=== PATIENT | male | born 1955 | race Caucasian/White ===

== ENCOUNTER 2016-04-08 17:33 | Inpatient (IN) | payer MEDICARE, OTHER ==
[~2016-04-08] VITALS: Ht 182.9 cm; Wt 163.2 kg
[2016-04-08] VITALS (10 sets, daily range): BP systolic 80–99; RESP 9–22; TEMP 97.7; BMI 45.7
[2016-04-08] MEDS ORDERED: SODIUM CHLORIDE 0.9% 1,000 ML ONE ×2 (17:51→19:49)
[2016-04-08] MEDS ORDERED: ASPIRIN 81 MG CHEW TAB ONE (18:02)
[2016-04-08] MEDS ORDERED: SODIUM CHLORIDE 0.9% 500 ML IV ONE (19:28)
[2016-04-08] MEDS ORDERED: ED DOPamine PREMIX 250 ML IV ONE (19:49)
[2016-04-08] MEDS ORDERED: ONDANSETRON 4 MG VIAL ONE (20:07)
[2016-04-08] MEDS ORDERED: LORAZEPAM 0.5 MG TAB PO PRN (20:30)
[2016-04-08] MEDS ORDERED: TEMAZEPAM 15 MG CAP PO PRN (20:30)
[2016-04-08] MEDS ORDERED: SOD CHLOR 0.9% 1000 ML IV SCH (20:30)
[2016-04-08] MEDS ORDERED: NITROGLYCERIN SL 0.4 MG TAB SL PRN (20:30)
[2016-04-08] MEDS ORDERED: TRAMADOL 50 MG TAB PO PRN (20:30)
[2016-04-08] MEDS ORDERED: DOCUSATE SOD 100 MG CAP PO PRN (20:30)
[2016-04-08] MEDS ORDERED: ASPIRIN 81 MG CHEW TAB PO ONE (20:30)
[2016-04-08] MEDS ORDERED: SALINE FLUSH 10 ML FLUSH PRN (20:30)
[2016-04-08] MEDS ORDERED: SODIUM CHLORIDE 0.9% FLUSH BAG 500 ML IV PRN (20:30)
[2016-04-08] MEDS ORDERED: NITROGLYCERIN 50 MG/250 ML IV PRN (20:30)
[2016-04-08] MEDS ORDERED: DOPamine 400 MG/D5W 250 ML IV SCH (21:45)
[2016-04-08] MEDS ORDERED: DEXTROSE 50% SYRINGE 50 ML IV PRN (23:55)
[2016-04-08] MEDS ORDERED: GLUCAGON 1 MG VIAL IM PRN (23:55)
[2016-04-09] VITALS (68 sets, daily range): BP systolic 72–138; RESP 14–25; TEMP 97.4–97.9
[2016-04-09] MEDS: SALINE FLUSH 10 ML FLUSH SCH ×2 (07:43→20:45)
[2016-04-09] MEDS ORDERED: ASPIRIN EC 81 MG TAB PO SCH (08:00)
[2016-04-09] MEDS: MORPHINE 2 MG/ML SYR IV PRN (09:20)
[2016-04-09] MEDS: ASPIRIN EC 81 MG TAB PO SCH (11:50)
[2016-04-09] MEDS ORDERED: NITROGLYCERIN SL 0.4 MG TAB SL SCH (11:50)
[2016-04-09] MEDS ORDERED: [UNRECOGNIZED DRUG - REMARK] XX SCH (12:23)
[2016-04-09] MEDS: CITALOPRAM 20 MG TAB PO SCH (12:47)
[2016-04-09] MEDS: LEVOTHYROXINE 0.125 MG TAB PO SCH (15:53)
[2016-04-09] MEDS: ACETAMINOPHEN 325 MG TAB PO PRN ×2 (16:44→20:43)
[2016-04-09] MEDS ORDERED: TRAMADOL 50 MG TAB PO PRN ×2 (16:55)
[2016-04-09] MEDS: FAMOTIDINE 40 MG TAB PO SCH (20:42)
[2016-04-09] MEDS: RANOLAZINE ER 500 MG TAB PO SCH (20:42)
[2016-04-10] VITALS (21 sets, daily range): BP systolic 67–153; RESP 14–24; TEMP 97.5–98.4; Ht 182.9 cm; Wt 163.2 kg
[2016-04-10] MEDS: LEVOTHYROXINE 0.125 MG TAB PO SCH (06:14)
[2016-04-10] MEDS ORDERED: LEVOTHYROXINE 0.025 MG TAB PO SCH (07:00)
[2016-04-10] MEDS: AMIODARONE 200 MG TAB PO SCH (08:08)
[2016-04-10] MEDS: ASPIRIN EC 81 MG TAB PO SCH (08:08)
[2016-04-10] MEDS: FAMOTIDINE 40 MG TAB PO SCH ×2 (08:08→20:38)
[2016-04-10] MEDS: RANOLAZINE ER 500 MG TAB PO SCH ×2 (08:08→20:38)
[2016-04-10] MEDS: SALINE FLUSH 10 ML FLUSH SCH ×2 (08:08→20:38)
[2016-04-10] MEDS: CITALOPRAM 20 MG TAB PO SCH (08:09)
[2016-04-10] MEDS ORDERED: KAYEXOLATE 15 GM/60 ML BTL PO ONE (09:50)
[2016-04-10] MEDS ORDERED: CALCIUM GLUCONATE 1,000 MG in SODIUM CHLORIDE 0.9% 100 ML IV ONE (09:50)
[2016-04-10] MEDS: MORPHINE 2 MG/ML SYR IV PRN (12:06)
[2016-04-10] MEDS: ONDANSETRON 4 MG VIAL IV PRN (12:44)
[2016-04-10] MEDS ORDERED: MISSING DOSE XX ONE (18:35)
[2016-04-10] MEDS ORDERED: DOCUSATE SOD 100 MG CAP PO PRN (18:40)
[2016-04-10] MEDS ORDERED: METOPROLOL XL 25 MG TAB PO SCH (21:00)
[2016-04-11 03:04] VITALS: BP_SYST 104; RESP 18; TEMP 98.3
[2016-04-11 03:05] VITALS: BP_SYST 104; RESP 18; TEMP 98.3
[2016-04-11] MEDS: ONDANSETRON 4 MG VIAL IV PRN (04:44)
[2016-04-11] MEDS: LEVOTHYROXINE 0.125 MG TAB PO SCH (05:25)
[2016-04-11 08:09] VITALS: BP_SYST 144; RESP 20; TEMP 97.8
[2016-04-11] MEDS: SALINE FLUSH 10 ML FLUSH SCH (08:33)
[2016-04-11] MEDS: ASPIRIN EC 81 MG TAB PO SCH (08:34)
[2016-04-11] MEDS: RANOLAZINE ER 500 MG TAB PO SCH (08:34)
[2016-04-11] MEDS: FAMOTIDINE 40 MG TAB PO SCH (08:34)
[2016-04-11] MEDS: AMIODARONE 200 MG TAB PO SCH (08:34)
[2016-04-11] MEDS: CITALOPRAM 20 MG TAB PO SCH (08:34)
[2016-04-11 11:08] VITALS: BP_SYST 132; RESP 14; TEMP 97.6
[2016-04-11 15:07] VITALS: BP_SYST 148; RESP 20; TEMP 98.7
[2016-04-11 16:08] VITALS: BP_SYST 148; RESP 20; TEMP 98.7
== END 2016-04-11 17:30 | disposition home or self-care (01) | DRG 312 ==
LOC: ENRESERVTM → ENRESERVDT → ER 17:33 → ENPENDDIS 20:21 → EMR 20:21 → CCU 21:21 → PCU2 04-10 12:28
PROVIDERS: ADMIT Internal Medicine Cardiovascular Disease; ATTEND Internal Medicine Cardiovascular Disease
CPT/HCPCS: 36415; 71010; 80048; 80053; 80061; 81003; 82550; 82947; 83036; 83605; 83735; 83880; 84439; 84443; 84484; 85025; 85610; 85730; 93005; 93306; 96365